=== PATIENT | female | born 1995 | race Two or more races ===

== ENCOUNTER 2019-10-30 22:53 | Emergency (ER) | payer SELFPAY ==
[~2019-10-30] VITALS: Ht 167.6 cm; Wt 79.0 kg
[2019-10-30 23:07] VITALS: BP 123/66
== END 2019-10-31 02:52 | disposition left against medical advice (07) ==
LOC: ER 22:53
DX: R06.02 Shortness of breath (principal); R05 Cough; Z53.21 Procedure and treatment not carried out due to patient leaving prior to being seen by health care provider